=== PATIENT | female | born 1940 | race Two or more races ===

== ENCOUNTER → 2024-08-13 | Outpatient (CLI) | payer MEDICARE, SELFPAY ==
--- NOTE | 2024-08-13 09:30 | XR_ITS ---
Examination: Breast ultrasound, unilateral, left complete Date and time of exam: August 13, 2024 0944 hours INDICATIONS: Mammogram July 09, 2024 small focus microcalcifications upper outer left breast posterior depth, 10 mm focal asymmetry inner upper left breast anterior depth Technique: Real-time vyas scale ultrasonographic imaging performed left breast including all 4 quadrants as well as nipple retroareolar and axillary region. Findings: No cystic or solid mass IMPRESSION: BI-RADS Category 1: Negative study
--- NOTE | 2024-08-13 10:00 | XR_ITS ---
Examination: Diagnostic digital mammography, unilateral, left Computer aided detection 3-D breast Tomosynthesis, unilateral Date and time of exam: August 13, 2024 1007 hours INDICATIONS: Grouped microcalcifications upper outer left breast posterior depth, 10 mm focal asymmetry inner upper left breast anterior depth on mammogram Technique: Nonmagnified MLO, CC views of the left breast have been obtained, reconstructed from 3-D Tomosynthesis images. R2 computer aided detection program utilized for evaluation of suspicious masses and/or abnormal calcifications. 3-D Tomosynthesis images obtained. Findings: The breast is heterogeneously dense, which may obscure small masses Benign appearing calcifications upper outer left breast Focal asymmetry 10 mm does persist in the inner left breast, likely upper left breast on the MLO view Impression: BI-RADS category 3: Probably benign findings One additional 6 month left mammogram follow-up strongly recommended to document stability of 10 mm focal asymmetry inner left breast
== END | disposition home or self-care (01) ==
PROVIDERS: PCP Family Medicine; Referring Provider Family Medicine; Visit Provider Family Medicine
DX: R92.332 Mammographic heterogeneous density, left breast (principal); N64.89 Other specified disorders of breast
CPT/HCPCS: 76641; 77061; 77065; G0279

== ENCOUNTER → 2024-10-16 | Outpatient (CLI) | payer MEDICARE, SELFPAY ==
--- NOTE | 2024-10-16 10:46 | XR_ITS ---
Examination: Breast ultrasound, unilateral, left complete Date and time of exam: October 16, 2024 1112 hours INDICATIONS: Mammogram August 13, 2024 10 mm focal asymmetry inner left breast Technique: Real-time vyas scale ultrasonographic imaging performed left breast including all 4 quadrants as well as nipple retroareolar and axillary region. Findings: No cystic or solid mass IMPRESSION: BI-RADS Category 1: Negative study
== END | disposition home or self-care (01) ==
PROVIDERS: PCP Family Medicine; Referring Provider Family Medicine; Visit Provider Family Medicine
DX: N64.89 Other specified disorders of breast (principal)
CPT/HCPCS: 76641

== ENCOUNTER → 2025-01-29 | Outpatient (CLI) | payer MEDICARE, SELFPAY ==
--- NOTE | 2025-01-29 14:15 | XR_ITS ---
Examination: Diagnostic digital mammography, unilateral, left Computer aided detection 3-D breast Tomosynthesis, unilateral Date and time of exam: January 29, 2025 1411 hours INDICATIONS: 10 mm focal asymmetry inner upper left breast anterior depth on mammogram July 09, 2024 Technique: Nonmagnified MLO, CC views of the left breast have been obtained, reconstructed from 3-D Tomosynthesis images. R2 computer aided detection program utilized for evaluation of suspicious masses and/or abnormal calcifications. 3-D Tomosynthesis images obtained. Findings: The breast is heterogeneously dense, which may obscure small masses Focal asymmetry remains inner left breast Benign calcifications Impression: BI-RADS category 0: Incomplete: Need additional imaging evaluation Recommend repeating the left breast sonogram
== END | disposition home or self-care (01) ==
LOC: CDIM 13:55
PROVIDERS: PCP Family Medicine; Referring Provider Family Medicine; Visit Provider Family Medicine
DX: R92.2 Inconclusive mammogram (principal)
CPT/HCPCS: 77061; 77065; G0279

== ENCOUNTER → 2025-05-15 | Outpatient (CLI) | payer MEDICARE, SELFPAY ==
--- NOTE | 2025-05-15 13:49 | XR_ITS ---
Examination: Breast ultrasound, unilateral, left complete Date and time of exam: May 15, 2025, 1401 hours INDICATIONS: Mammogram January 29, 2025 focal asymmetry inner left breast Technique: Real-time vyas scale ultrasonographic imaging performed left breast including all 4 quadrants as well as nipple retroareolar and axillary region. Findings: No cystic or solid mass IMPRESSION: BI-RADS Category 1: Negative study
== END | disposition home or self-care (01) ==
PROVIDERS: PCP Family Medicine; Referring Provider Family Medicine; Visit Provider Family Medicine
DX: R92.8 Other abnormal and inconclusive findings on diagnostic imaging of breast (principal)
CPT/HCPCS: 76641

== ENCOUNTER 2025-07-27 13:29 | Emergency (ER) | payer MEDICARE, SELFPAY ==
[2025-07-27 13:33] VITALS: BMI 24.7
--- NOTE | 2025-07-27 13:37 | EKG_ITS ---
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
[2025-07-27 13:47] VITALS: BP 155/86; PULSE 81; RESP 18; TEMP 36.9; O2SAT 99
--- NOTE | 2025-07-27 13:52 | XR_ITS ---
Examination: CT brain head without contrast. 2-D sagittal coronal reconstructions Date and time of exam: July 27, 2025, 1359 hours COMPARISON: October 21, 2014 INDICATIONS: Generalized head pain today CTDI: vol (mGy): 47 DLP: (mGycm): 888 Technique: Multiple CT axial sections of the brain have been obtained, 5 mm slice thickness. Contrast has not been administered. 2-D sagittal, coronal reconstructions have been obtained Low dose protocols were performed. One or more of the following dose reduction techniques were used; automated exposure control, adjustment of the mA and/or KV according to patient size, use of iterative reconstruction technique. Findings: No significant ventricular enlargement. Intra-axial or extra-axial hemorrhage density is not seen. No mass effect or midline shift Basal cisterns are not remarkable. Fourth ventricle is midline. Cranial vault intact. Impression: Negative for acute hemorrhage, mass effect or midline shift Advise clinical correlation and follow-up accordingly
--- NOTE | 2025-07-27 13:54 | EDRME_ITS ---
Rapid Medical Screening Exam [facility] Arrival date/time: 07/27/25 13:29 85-year-old female with a history of hypertension presents to the emergency room with a chief complaint of left-sided facial numbness and visual disturbances that occurred yesterday at 10 PM. Patient was seen by her primary care provider this morning and was sent to the emergency room to rule out a TIA I have greeted and performed a focused initial assessment of this patient. A comprehensive ED assessment and evaluation of the patient, analysis of all test results, and completion of the medical decision making process will be conducted by additional ED providers. Chief Complaint: Neuro Symptoms/Deficit Vital signs: Vital Signs Temperature 98.5 F 07/27/25 13:47 Pulse Rate 81 07/27/25 13:47 Respiratory Rate 18 07/27/25 13:47 Blood Pressure 155/86 H 07/27/25 13:47 Pulse Oximetry (%) 99 07/27/25 13:47 Oxygen Delivery Method Room Air 07/27/25 13:47 Vital signs reviewed by provider: Yes Exam: GCS of 15 alert and oriented x 3 Pupils are PERRLA EOMs are intact at this time there is no neurological deficits Clinical Impression: TIA/stroke/
[2025-07-27 14:26] LABS: Basophils # (Auto) 0.0 Thou/mm3 (0.0-0.2); Basophils % (Auto) 1 % (0-2.5); Eosinophils # (Auto) 0.1 Thou/mm3 (0.0-0.5); Eosinophils % (Auto) 1 % (0-10); Hematocrit 35.1 % (36.0-46.0); Hemoglobin 11.7 g/dL (12.0-16.0); Immature Granulocytes Auto 0.01 Thou/mm3 (0.00-0.00); Lymphocytes # (Auto) 1.1 Thou/mm3 (1.0-4.8); Lymphocytes % (Auto) 27 % (10-50); Mean Corpuscular HGB Conc 33.3 g/dl (31.0-37.0); Mean Corpuscular Hemoglobin 29.6 pg (25.0-35.0); Mean Corpuscular Volume 89 fL (80-100); Monocytes # (Auto) 0.4 Thou/mm3 (0.0-0.8); Monocytes % (Auto) 9 % (0-12); Neutrophils # (Auto) 2.6 Thou/mm3 (1.8-7.7); Neutrophils % (Auto) 62 % (37-80); Nucleated Red Blood Cell # 0.00 Thou/mm3 (0.00-0.00); Nucleated Red Blood Cell % 0 /100 WBC (0); Platelet Count 195 Thou/mm3 (140-440); RDW Standard Deviation 44.9 fL (36.4-46.3); Red Blood Count 3.95 Miln/mm3 (4.00-5.20); White Blood Count 4.2 Thou/mm3 (3.6-11.0)
[2025-07-27 14:36] LABS: INR 1.0 (0.9-1.3); Partial Thromboplastin Time 26.6 Seconds (22.0-36.0); Prothrombin Time 10.7 Seconds (9.0-12.2)
[2025-07-27 14:47] LABS: B-Type Natriuretic Peptide 31 pg/mL (0-100)
[2025-07-27 14:50] LABS: Collection Type, Urine Clean Catch
[2025-07-27 14:50] LABS: Alanine Aminotransferase 19 U/L (10-49); Albumin, Serum 4.4 gm/dL (3.4-4.8); Albumin/Globulin Ratio 1.5 (1.2-2.2); Alkaline Phosphatase 61 U/L (46-116); Anion Gap 6 (7-16); Aspartate Amino Transferase 29 U/L (0-34); BUN/Creatinine Ratio 16 Ratio (12-20); Bilirubin,Total 0.5 mg/dL (0.3-1.2); Blood Urea Nitrogen 13 mg/dL (9-23); Calcium 9.0 mg/dL (8.3-10.6); Calcium (Corrected) 9.0 mg/dL (8.5-10.1); Carbon Dioxide 30.4 mMol/L (20.0-31.0); Chloride 100 mMol/L (98-107); Creatinine (Component) 0.8 mg/dL (0.6-1.3); Estimated Creatinine Clearance 42.6 mL/min (>60); Globulin 2.9 gm/dL (2.3-3.5); Glucose 95 mg/dL (74-106); Osmolality,Calculated 272 (275-295); Potassium 3.9 mMol/L (3.4-5.1); Sodium 136 mMol/L (136-145); Total Protein 7.3 gm/dL (5.7-8.2); Troponin I < 0.020 ng/mL (0.0-0.045); eGFR > 60 See Note
[2025-07-27 15:06] LABS: Bilirubin,Urine Negative (Negative); Blood,Urine Negative (Negative); Clarity,Urine Clear (Clear/Hazy); Color,Urine Colorless (Lt Yel-Yel); Culture Indicated,Urine Not Indicated; Glucose, Urine Negative (Negative); Ketones,Urine Negative (Negative); Leukocyte Esterase,Urine Negative (Negative); Nitrite,Urine Negative (Negative); PH,Urine 7.0 (5.0-7.0); Protein,Urine Negative (Neg - Trace); RBC,Urine 1 /hpf (0-3); Specific Gravity,Urine 1.009 (1.001-1.035); Squamous Epithelial Cell,Urine 1 /hpf (0-5); Urobilinogen,Urine Negative mg/dL (0.0-1.0); WBC,Urine < 1 /hpf (0-5)
[2025-07-27 16:34] VITALS: BP 157/79; PULSE 62; RESP 17; TEMP 37.1; O2SAT 100
--- NOTE | 2025-07-27 16:52 | EDNOTE_ITS ---
<Statement entered by Tiffany Todd MD - 07/27/25 17:58> As co-signing physician, I was present and available for consult prn. I concur with the plan and care as documented by the midlevel provider. ED General RME/HPI General Chief complaint: Neuro Symptoms/Deficit Stated complaint: SENT FOR R/O TIA, SYMPTOMS AT 1000, BETTER NOW Time Seen by Provider: 07/27/25 16:40 Arrival date/time: 07/27/25 13:29 CC: Right upper quadrant visual field cut followed by squiggly lines in the late ral vision all of which spontaneously resolved after 30 minutes HPI onset yesterday afternoon. Since then the patient has had a mild low-level headache which was reduced with Tylenol last night she was able to sleep through the whole night but the had a low-level headache this morning. Patient denies any other visual changes today denies any focal deficits nausea vomiting diarrhea chest pain shortness of breath altered mentation or loss of consciousness. RME / HPI RME / HPI narrative: 07/27/25 13:29 85-year-old female with a history of hypertension presents to the emergency room with a chief complaint of left-sided facial numbness and visual disturbances that occurred yesterday at 10 PM. Patient was seen by her primary care provider this morning and was sent to the emergency room to rule out a TIA I have greeted and performed a focused initial assessment of this patient. A comprehensive ED assessment and evaluation of the patient, analysis of all test results, and completion of the medical decision making process will be conducted by additional ED providers. Exam: GCS of 15 alert and oriented x 3 Pupils are PERRLA EOMs are intact at this time there is no neurological deficits Impression: TIA/stroke/ Related Data Home Medications ?Medication ?Instructions ?Recorded ?Confirmed cyanocobalamin (vitamin B-12) 1,000 mcg subcut QMONTH 02/24/21 02/24/21 1,000 mcg/mL injection solution lisinopril 10 mg tablet 20 mg PO DAILY blood pressur e 02/24/21 02/24/21 promethazine-DM 6.25 mg-15 mg/5 mL 6.25 ml PO PRN PRN Sinus Symptoms 02/24/21 02/24/21 oral syrup Previous Rx's ?Medication ?Instructions ?Recorded pantoprazole 40 mg tablet,delayed 40 mg PO QDAY #14 ta bs 01/20/22 release (Protonix) Allergies Allergy/AdvReac Type Severity Reaction Status Date / Time codeine Allergy Severe N/V Verified 07/27/25 13:36 hydrocodone Allergy Severe N/V Verified 07/27/25 13:36 hydromorphone Allergy Severe N/V, Verified 07/27/25 13:36 POSSIBLE DROP IN HEART RATE meperidine Allergy Severe N/V, Verified 07/27/25 13:36 POSSIBLE DROP IN HEART RATE morphine Allergy Severe N/V Verified 07/27/25 13:36 shellfish derived Allergy Severe HIVES, Verified 07/27/25 13:36 throat swelling FISH Allergy Severe TONGUE Uncoded 07/27/25 13:36 SWELLING,HIVES,SOB Review of Systems Review of Systems Narrative Review of Systems: GEN: No fever, no chills, no weight loss EYES: No discharge, no visual changes, no pain HEENT: No ear pain, no congestion, no sore throat PULM: No shortness of breath, no cough, no congestion CV: No chest pain, no dyspnea on exertion, no palpitations GI: No nausea, no vomiting, no diarrhea, no pain, no constipation : No frequency, no urgency, no dysuria MUSC/SKEL: No joint pain, no back pain SKIN: No rash PSYCH: No hallucinations, no depression HEME/LYMPH: No easy bleeding or bruising tendencies NEURO: No weakness, no headache Past Medical History Past Medical History NEUROLOGIC: Negative Seizures CARDIAC: Positive Hypertension; Negative Congestive Heart Failure RESPIRATORY: Negative Chronic Obstructive Pulmonary Disease (COPD) GENITOURINARY: Negative Renal Disease MUSCULOSKELETAL: Positive Carpal Tunnel Syndrome ENDOCRINE: Negative Diabetes Mellitus Type 1 or Diabetes Mellitus Type 2 HEMATOLOGIC: Positive Blood Disorders and Anemia OTHER HISTORY: Positive Blood Transfusions; Negative Blood Transfusion Reaction or Anesthesia Reactions Surgical History SURGICAL: Positive of Back Surgery Social History SMOKING STATUS: Never smoker SUBSTANCE USE: does not use ED Exam Narrative Physical exam: [General: Not in any acute distress Head normocephalic HEENT: Eyes pupils are PERRLA EOMs are intact no nystagmus mouth pink moist membranes uvula is midline swallow symmetrical phonation is normal nose no rhinorrhea ears no otorrhea. All of the substance of HEENT are within acceptable limits Neck is supple nontender Chest equal chest rise nontender to palpation Respiratory: Clear to auscultation no wheezes crackles or rubs CV: Rate rhythm is regular no murmurs rubs or clicks Abdomen is soft nontender no masses positive bowel sounds all 4 quadrants Back: No CVA tenderness no spinous process tenderness from cervical spine thoracic and lumbar spine Skin: Intact no petechiae rash induration ulceration or crepitus Extremities: Moving all extremity against resistance cap refill less than 2 seconds neurosensory intact. No lower extremity edema. Neuro: Awake alert oriented x3 Glascow coma 15 no focal deficits] cranial nerves II through XII are grossly intact. Course Course Course Narrative: Repeat examination of this patient at 1659 shows no acute deficits. Patient is awake alert oriented tracking well there are no issues comfortable discharging this patient home not sure what exactly caused this patient is to follow-up with her primary care doctor and consider neurology. Quality Measures none Orders Category Date Time Status EKG (ED ONLY) *Do not use* NOW Care 07/27/25 13:[address] head/brain wo con Stat Exams 07/27/25 13:52 Completed EKG (ED Only) Stat Exams 07/27/25 13:37 Draft BNP [B-Type Natriuretic Peptide] Stat Lab 07/27/25 14:10 Completed CBC Stat Lab 07/27/25 14:10 Completed CMP [Comprehensive Metabolic Panel] Stat Lab 07/27/25 14:10 Completed PT [Prothrombin Time with INR] Stat Lab 07/27/25 14:10 Completed PTT [Partial Thromboplastin Time] Stat Lab 07/27/25 14:10 Completed Troponin I Stat Lab 07/27/25 14:10 Completed UA, C/S IF [Urinalysis, C/S if Indicated] Stat Lab 07/27/25 14:29 Completed Vital Signs Vital signs: Vital Signs Temperature 98.5 F 07/27/25 13:47 Pulse Rate 81 07/27/25 13:47 Respiratory Rate 18 07/27/25 13:47 Blood Pressure 155/86 H 07/27/25 13:47 Pulse Oximetry (%) 99 07/27/25 13:47 Oxygen Delivery Method Room Air 07/27/25 13:47 Discharge Plan Plan Patient Disposition: HOME (Self Care) Patient condition on transfer: Stable Prescriptions/Referrals Prescriptions/Med Rec: No Action promethazine-DM 6.25-15 mg/5 mL Syrup 6.25 ml PO PRN PRN (Reason: Sinus Symptoms) cyanocobalamin (vitamin B-12) 1,000 mcg/mL solution 1,000 mcg SUBCUT QMONTH Patient Comments: inject 1 milliliter ( 1000 MCG ) intramuscularly Every Month lisinopril 10 mg Tablet 20 mg PO DAILY pantoprazole [Protonix] 40 mg tablet,delayed release (DR/EC) 40 mg PO QDAY Qty: 14 0RF Referrals: Ming Melo MD [Primary Care Provider, Family Practice] - In 1 week Problem List Clinical Impression: Transient vision disturbance, bilateral, Headache Patient/Caregiver Discharge Instructions Other Activity Instructions:: Follow-up with your primary care doctor considered referral to neurology. Since this is transient I do not feel ophthalmology is a viable option. Take Tylenol or ibuprofen for headache if there is a worsening of the headache in spite of these medications follow-up with your primary care or return to the emergency room for reevaluation. Education Materials: Understanding Vision Problems, Prevention Guidelines Women ... Print Language: Sami Stand Alone Forms: Elaine Award Info., Work/School Release, Patient Portal Info Letter PA/[employer] Supervising Physician KARINA/ZULEMA Supervising Physician: Fermin Loya ENP [facility] Clinical Information Provided by: patient Medical Records reviewed [facility] Meds/Rx considered, not ordered None Labs/Rad/Tests considered, not ordered None Chronic Illness/Social Conditions Explain: Pernicious anemia EKG Interpretation EKG #1: EKG Interpretation: EKG performed at 1343 shows a ventricular to 5 4 DC interval 148 QRS of 91 QTc of 406 this is sinus bradycardia. Labs Labs: interpreted by la Lab(s) Interpretation(s): CBC shows no leukocytosis and hemoglobin of 11.7 hematocrit of 35.1 no thrombocytopenia Coags within acceptable limits CMP shows no acute electrolyte imbalances renal impairment transaminitis or T. bili elevation Troponin is negative BNP is within acceptable limits Urine is unremarkable for urinary tract infection Imaging Imaging interpretation: interpreted by la Imaging Interpretation(s): CT head is negative for any acute finding.
== END 2025-07-27 17:13 | disposition home or self-care (01) ==
PROVIDERS: Nurse Practitioner Family; Emergency Provider Emergency Medicine; PCP Family Medicine
DX: I63.9 Cerebral infarction, unspecified (principal); I10 Essential (primary) hypertension; D51.0 Vitamin B12 deficiency anemia due to intrinsic factor deficiency; H53.40 Unspecified visual field defects
CPT/HCPCS: 36415; 70450; 80053; 81001; 83880; 84484; 85025; 85610; 85730; 93005; 99283

== ENCOUNTER → 2025-08-17 | Outpatient (CLI) | payer MEDICARE, OTHER, SELFPAY ==
[2025-08-17 12:39] LABS: Collection Type, Urine Clean Catch
[2025-08-17 13:16] LABS: Bilirubin,Urine Negative (Negative); Blood,Urine Negative (Negative); Clarity,Urine Clear (Clear/Hazy); Color,Urine Yellow (Lt Yel-Yel); Glucose, Urine Negative (Negative); Ketones,Urine Negative (Negative); Leukocyte Esterase,Urine Positive (Negative); Nitrite,Urine Negative (Negative); PH,Urine 6.0 (5.0-7.0); Protein,Urine Trace (Neg - Trace); RBC,Urine 5 /hpf (0-3); Specific Gravity,Urine 1.028 (1.001-1.035); Squamous Epithelial Cell,Urine 6 /hpf (0-5); Urobilinogen,Urine 2.0 mg/dL (0.0-1.0); WBC,Urine 3 /hpf (0-5)
[2025-08-17 13:17] LABS: Basophils # (Auto) 0.0 Thou/mm3 (0.0-0.2); Basophils % (Auto) 1 % (0-2.5); Eosinophils # (Auto) 0.1 Thou/mm3 (0.0-0.5); Eosinophils % (Auto) 2 % (0-10); Hematocrit 35.3 % (36.0-46.0); Hemoglobin 11.5 g/dL (12.0-16.0); Immature Granulocytes Auto 0.01 Thou/mm3 (0.00-0.00); Lymphocytes # (Auto) 1.1 Thou/mm3 (1.0-4.8); Lymphocytes % (Auto) 21 % (10-50); Mean Corpuscular HGB Conc 32.6 g/dl (31.0-37.0); Mean Corpuscular Hemoglobin 29.9 pg (25.0-35.0); Mean Corpuscular Volume 92 fL (80-100); Monocytes # (Auto) 0.5 Thou/mm3 (0.0-0.8); Monocytes % (Auto) 9 % (0-12); Neutrophils # (Auto) 3.5 Thou/mm3 (1.8-7.7); Neutrophils % (Auto) 66 % (37-80); Nucleated Red Blood Cell # 0.00 Thou/mm3 (0.00-0.00); Nucleated Red Blood Cell % 0 /100 WBC (0); Platelet Count 200 Thou/mm3 (140-440); RDW Standard Deviation 46.8 fL (36.4-46.3); Red Blood Count 3.85 Miln/mm3 (4.00-5.20); White Blood Count 5.2 Thou/mm3 (3.6-11.0)
[2025-08-17 13:37] LABS: Alanine Aminotransferase 19 U/L (10-49); Albumin, Serum 4.5 gm/dL (3.4-4.8); Albumin/Globulin Ratio 1.6 (1.2-2.2); Alkaline Phosphatase 69 U/L (46-116); Anion Gap 8 (7-16); Aspartate Amino Transferase 27 U/L (0-34); BUN/Creatinine Ratio 26 Ratio (12-20); Bilirubin,Total 0.4 mg/dL (0.3-1.2); Blood Urea Nitrogen 21 mg/dL (9-23); Calcium 9.0 mg/dL (8.3-10.6); Calcium (Corrected) 9.0 mg/dL (8.5-10.1); Carbon Dioxide 28.5 mMol/L (20.0-31.0); Cardiac Risk Estimate 2.4 RATIO (3.7-5.6); Chloride 105 mMol/L (98-107); Cholesterol 123 mg/dL (132-200); Creatinine (Component) 0.8 mg/dL (0.6-1.3); Globulin 2.9 gm/dL (2.3-3.5); Glucose 103 mg/dL (74-106); HDL Cholesterol 51 mg/dL (40-60); LDL Cholesterol,Calculated 61 mg/dL (0-130); Osmolality,Calculated 284 (275-295); Potassium 4.5 mMol/L (3.4-5.1); Sodium 141 mMol/L (136-145); Thyroid Stimulating Hormone 1.74 uIU/mL (0.55-4.78); Total Protein 7.4 gm/dL (5.7-8.2); Triglycerides 54 mg/dL (30-150); eGFR > 60 See Note
== END | disposition home or self-care (01) ==
PROVIDERS: PCP Family Medicine; Referring Provider Family Medicine; Visit Provider Family Medicine
DX: Z00.00 Encounter for general adult medical examination without abnormal findings (principal); I10 Essential (primary) hypertension; D64.9 Anemia, unspecified
CPT/HCPCS: 36415; 80053; 80061; 81001; 84443; 85025